=== PATIENT | female | born 1950 | race Caucasian/White ===

== ENCOUNTER 2018-07-01 12:53 | Outpatient (REF) | payer MEDICARE, OTHER, SELFPAY ==
[2018-07-03 13:59] LABS: Lyme Ab w Rflx to Lyme Confirm Negative
== END 2018-07-01 12:54 ==
LOC: NCHCN 12:53
PROVIDERS: PCP Internal Medicine; Visit Provider Nurse Practitioner Family
DX: M25.561 Pain in right knee (principal)
CPT/HCPCS: 86618

== ENCOUNTER 2018-07-15 08:00 | Outpatient (RCR) | payer MEDICARE, OTHER, SELFPAY ==
--- NOTE | 2018-07-09 10:30 | IE_ITS ---
Date: July 09, 2018 Referring: Dr. Kirby Matson [facility] Cesar Diagnosis: Osteoarthritis of the knees P.T. Diagnosis: Same SUBJECTIVE: History of Present Illness: Dari complains of intermittent discomfort throughout knees L greater than R, particularly throughout the anterior, medial region. This is worse with stairclimbing, dissension greater than ascension and when taking the first dozen steps after prolonged sitting. She generally feels better with walking less than a 1/2 mile or so, Does not interfere with her sleeping pattern. She avoids twisting maneuvers with her L knee as well as squatting. No complaints of swelling, locking or buckling. A 67 year old female who developed gradual onset of bilateral knee pain L greater than R when in [place] this past February. She was walking up to 7-9 miles a day with her . Prior to that minimal walking. In March, she slipped, fell and tweaked her L knee. It was quite intense for 24 hours, no significant swelling. Iced it and it eventually quieted down after a few days. She returned back home to [place] and her symptoms persisted. She saw her orthopedist 3 weeks ago and had a cortical steroid injection in her L knee and this made a 90% improvement with her symptoms. Her symptoms have gradually increased, but she is still 50% better than pre injection. Pain Ratin/10 Pain Location: Throughout the anterior, posterior aspect of the knees, L greater than R. Prior Level of Function: Independent with all ADL's. Current Level of Function: Discomfort with carrying out her normal household activities, donning, doffing her socks, and shoes. Getting in and out of car, standing for more than an hour, etc. . . Previous Treatment: Had x-r ays recently which showed DJD of the knees, apparently primarily throughout the medial compartment according to the patient. I do not have her x-rays or the report. Social: , retired. Comorbidities: Falls in the last year: ____ No __X__Yes - How many? __1 In March__ - (if over 2, balance SM needs to be completed) Reported hospitalizations in the last year - __x__ No ____ Yes - Dates of admission/reason: Medications: See her physician's medication list. Quality of Life: ____ Excellent __X__ Good ____ Fair ____ Poor Standardized Measures: LEFS score: 50% OBJECTIVE: Posture: Mildly obese (put on weight over the past 2 years). Is a pronator with minimal genu valgus. Observation: (behavior, atrophy, skin color, etc.) Pleasant, no abnormal pain behavior noted. Does have some swelling throughout her ankles, particularly the lateral malleolar region. Gait: Ambulates without antalgia. Is able to walk on her heel and toes without weakness, but toe walking creates anterior knee pain on the L, again she is a pronator. Palpation: Has tenderness to palpation throughout the joint lines, laterally greater than medially, L greater than R. Non-tender over quad, patella tendons, or retropatellarly. Edema: Minimal swelling throughout the knees. Has some mild warmth L greater than R. ROM: Bilateral hip motion is full and painless with movement. Her R knee motion is 0 to 140 degrees without pain on movement. L knee motion is 0 to 135- 140 degrees with end range discomfort throughout the anterior aspect of the knee with flexion, (-) spring test. (-) Jackie's or drawer sign, (-) laxity with valgus varus stress. Some mild discomfort with Darian's on the L compared to the R. Thessaly maneuver was not performed. She has pain with patellofemoral compression on the L, this is also associated with some mild crepitation, (-) on the R. Talocrural, subtalar and mid tarsal movements are full and painless with movement. She has a mild forefoot varus of approximately 6 degrees with subtalar neutral. Joint Accessory Motion: She has hypomobile patellae bilaterally. Strength: Poor definition of her quadricep with quad set, along with reproduction of her anterior knee pain with active terminal extension. Gluteus medius is at 4/5. Neuro: Intact. Special Tests: (-) SLR bilaterally with tight hamstrings at 60 degrees, (-) Lencho's test bilaterally. Quad length, distance between heel and buttocks is 4 with end range drawing throughout the anterior thighs. Treatment: Consisted of an evaluation along with development of a home program. IE: [id number] Therapeutic procedures ([id number]). Direct treatment time: 60 MINS Total treatment time: 60 MINS ASSESSMENT: Patient is a 67-year-old female, referred for PT services with the diagnosis of osteoarthritis of the knees. Patient presents with clinical signs and symptoms consistent with this diagnosis, which seems to be primarily involving the patellofemoral joints, as demonstrated by the following impairment level findings: pain primarily stairclimbing, dissension greater than ascension. Discomfort when taking the first couple dozen steps after prolonged sitting, etc. . . She also fell in March and may have aggravated a degenerative meniscus, but again she had a 90% improvement in her symptoms after steroid injections, so hopefully she will respond to conservative measures. Impairments are contributing to the following functional limitations: Difficulty standing for more than an hour along with pain and difficulty with stairclimbing, squatting, carrying out her regular household responsibilities, etc. . . Patient is assessed as: __X__ Low 92819 ____ Moderate [id number] ____ High 76169 complexity, based on the following: History: (list): OA of knees See comorbidities and social history. Examination: (list): X See above for functional limitations and impairments. Presentation: Stable . X Evolving Unstable Decision-Making: Low complexity X Moderate complexity High complexity % Disability based on LEFS of 50% __X__ Patient requires skilled PT intervention to remediate the above functional limitations to return to: __x__ Premorbid level of function Prognosis: ____ Excellent __X__ Good __X__ Fair ____ Poor G-Codes (fill in modifier after appropriate code): Patient's primary functional limitation is in the category of: __X__ Changing and maintaining body position: [id number] Projected goal: __x__ Changing and maintaining body position: [id number] STG: __6__ weeks. 1: Develop an independent program to address strengthening exercises to the thigh musculature, particularly the quads and gluts, along with minimizing stress to the patellofemoral joints, in hopes that this will improve her ability to climb stairs, squat and stand for prolonged periods. LTG: __12__ weeks. 1; Return to premorbid level of function. 2; Independent with self-maintenance program. PLAN: Session today consisted of evaluation along with issuing her a written and illustrated HEP consisting of quad, gluteal sets with patellofemoral precautions along with soft tissue stretching to the quad, hamstrings. Ice for symptomatic relief. She was issued a brace by Dr. Matson, but she has not tried this out yet, I encourage her to do so when on her feet for prolonged periods. Will see her in approximately 1 week and start a more structured program in the clinic for a few visits in open/close chain strengthening and then will work toward an independent program. I also encourage her to start wearing her walking shoes with her orthotic devices to address her mild hyperpronation. Has a follow up in one week. Thank you for this referral. Please do not hesitate to contact me with any questions or concerns regarding this patient's plan of care. Dr. Matson, please sign this evaluation and return to physical therapy if you are in agreement. Kirby Matson MD
--- NOTE | 2018-07-15 10:44 | PTTR_ITS ---
DATE: 07/15/18 SUBJECTIVE: Pt stating she feels about the same as she did last week. She has been doing her HEP at home regularly. She notes she does have a brace that was given to her from her doctor and she will bring it in next time to see if she should utilize it. OBJECTIVE: Therapeutic procedures ([id number]). * X HEP review: * X See flow sheet: Initiate open and closed chain LE strengthening program as noted on flow sheet. * X Provided skilled instruction in proper exercise performance: * X Provided skilled manual cues to facilitate proper muscle recruitment and/ or movement pattern: * X Other: Pt gets quite fatigued today overall and we will progress her program as she is able to tolerate. Direct treatment time: 35 minutes Total treatment time: 35 minutes Sol Salazar, [employer] 9 [employer]RU 12 [employer]
== END 2018-07-19 23:59 | disposition home or self-care (01) ==
LOC: PT 08:00
PROVIDERS: PCP Internal Medicine; Referring Provider Internal Medicine; Visit Provider Internal Medicine
DX: M25.561 Pain in right knee (principal); M25.562 Pain in left knee; M17.0 Bilateral primary osteoarthritis of knee
CPT/HCPCS: 97110; 97161

== ENCOUNTER 2018-10-22 08:41 | Outpatient (REF) | payer MEDICARE, OTHER, SELFPAY ==
[2018-10-22 13:26] LABS: BUN 20 mg/dL (7-18); CREATININE 1.16 mg/dL (0.55-1.02); Calcium 8.8 mg/dL (8.5-10.1); Chloride 107 mmol/L (98-107); Cholesterol 143 mg/dL (50-200); Estimated GFR 46.46 (mL/min/1.73m2); Glucose 113 mg/dL (70-100); HDL Cholesterol 50 mg/dL (40-60); LDL CHOLESTEROL 64 mg/dL (<100); Potassium 4.1 mmol/L (3.5-5.1); Sodium 140 mmol/L (136-145); Triglyceride 211 mg/dL (30-150)
== END 2018-10-22 09:01 ==
LOC: NCHCN 08:41
PROVIDERS: PCP Internal Medicine; Visit Provider Internal Medicine
DX: E78.5 Hyperlipidemia, unspecified (principal); E66.9 Obesity, unspecified
CPT/HCPCS: 80048; 80061; 83721

== ENCOUNTER 2019-10-27 08:33 | Outpatient (REF) | payer MEDICARE, OTHER, SELFPAY ==
[2019-10-27 14:39] LABS: Anion Gap 12.8 mmol/L (3-11); BUN 15 mg/dL (7-18); CO2 25.2 mmol/L (21.0-32.0); CREATININE 1.24 mg/dL (0.55-1.02); Calculated LDL 68 mg/dL; Chloride 106 mmol/L (98-107); Cholesterol 184 mg/dL (<200); Estimated GFR 42.89 (mL/min/1.73m2); Glucose 120 mg/dL (74-106); HDL Cholesterol 79 mg/dL (40-60); Potassium 4.4 mmol/L (3.5-5.1); Sodium 144 mmol/L (136-145); Triglyceride 187 mg/dL (<150)
== END 2019-10-27 08:53 ==
LOC: NCHCN 08:33
PROVIDERS: PCP Internal Medicine; Visit Provider Internal Medicine
DX: E78.5 Hyperlipidemia, unspecified (principal); N18.3 Chronic kidney disease, stage 3 (moderate); E66.9 Obesity, unspecified
CPT/HCPCS: 80048; 80061

== ENCOUNTER 2019-11-04 03:10 | Outpatient (CLI) | payer MEDICARE, OTHER, SELFPAY | END 2019-11-04 03:30 | PROVIDERS: PCP Internal Medicine; Visit Provider Internal Medicine | DX: R00.2 Palpitations (principal); I49.1 Atrial premature depolarization | CPT/HCPCS: 93225 ==

== ENCOUNTER 2019-11-06 15:50 | Outpatient (CLI) | payer MEDICARE, OTHER, SELFPAY ==
--- NOTE | 2019-11-07 08:46 | W.HOLTRPT ---
Date of service: 11/07/19 Time of Service: 08:46 Holter Monitor Report Holter Monitor Note: This is a 48-hour Holter monitor ordered for the indication of palpitations. ?The patient was in normal sinus rhythm for majority of the recording. ?There were 0 episodes of supraventricular tachycardia and rare (less than 1%) premature atrial contractions. ?There were 0 episodes of ventricular tachycardia and one single ventricular ectopic beat. ?There were no pauses greater than 3 seconds, episodes of atrial fibrillation or episodes of high degree heart block.
== END 2019-11-06 16:10 ==
PROVIDERS: PCP Internal Medicine; Visit Provider Internal Medicine
DX: R00.2 Palpitations (principal); I49.1 Atrial premature depolarization
CPT/HCPCS: 93226

== ENCOUNTER 2019-11-07 08:46 | Outpatient (CLI) | payer MEDICARE, OTHER, SELFPAY | END 2019-11-07 09:06 | PROVIDERS: PCP Internal Medicine; Referring Provider Internal Medicine; Visit Provider Internal Medicine Cardiovascular Disease | DX: R00.2 Palpitations (principal); I49.1 Atrial premature depolarization | CPT/HCPCS: 93227 ==

== ENCOUNTER 2020-08-02 01:16 | Outpatient (CLI) | payer MEDICARE, OTHER, SELFPAY ==
--- NOTE | 2020-08-02 08:50 | DI.MAMMO_ITS ---
EXAM: MAMMO SCREENING CLINICAL HISTORY: SCREENING, Z12.31 TECHNIQUE: Mammograms were interpreted according to the usual protocol including computer analysis w [employer] CAD system, tomosynthesis and C-view imaging. COMPARISON: FINDINGS: The breasts are of moderate density with fairly symmetrical distribution of fibroglandular tissue. N o dominant mass or clumped microcalcification is identified in either breast. Prior post biopsy scar ring of the medial aspect of the right breast noted. Examination is compared with previous studies i ncluding June 2019 and there has been no gross interval change in appearance in comparison with pre vious examinations. IMPRESSION: No specific evidence of malignancy at this time. Routine screening examinations are suggested at yea rly intervals due to the family history of breast carcinoma. BI-RADS Category 1 - Negative Breast Density - Category B - Scattered areas of fibroglandular density
== END 2020-08-02 01:36 ==
PROVIDERS: PCP Internal Medicine; Visit Provider Internal Medicine
DX: Z12.31 Encounter for screening mammogram for malignant neoplasm of breast (principal)
CPT/HCPCS: 77063; 77067

== ENCOUNTER 2020-11-01 20:10 | Outpatient (REF) | payer MEDICARE, OTHER, SELFPAY ==
[2020-11-01 21:51] LABS: ALT 27 U/L (14-59); AST 23 U/L (15-37); Albumin 3.8 g/dL (3.4-5.0); Alkaline Phosphatase 90 U/L (46-116); Anion Gap 12.6 mmol/L (3-11); BUN 24 mg/dL (7-18); Bilirubin, Total 0.2 mg/dL (0.2-1.0); CO2 21.4 mmol/L (21.0-32.0); CREATININE 1.44 mg/dL (0.55-1.02); Calcium 9.1 mg/dL (8.5-10.1); Chloride 107 mmol/L (98-107); Estimated GFR 35.99 (mL/min/1.73m2); Glucose 127 mg/dL (74-106); Potassium 4.1 mmol/L (3.5-5.1); Sodium 141 mmol/L (136-145); Total Protein 7.1 g/dL (6.4-8.2)
[2020-11-01 21:58] LABS: Hemoglobin A1C 5.6 % (<5.7)
== END 2020-11-01 20:30 ==
LOC: NCHCN 20:10
PROVIDERS: PCP Internal Medicine; Visit Provider Internal Medicine
DX: R73.03 Prediabetes (principal); E78.5 Hyperlipidemia, unspecified; N18.30 Chronic kidney disease, stage 3 unspecified; F41.8 Other specified anxiety disorders; E66.9 Obesity, unspecified
CPT/HCPCS: 80053; 83036

== ENCOUNTER 2020-12-14 03:10 | Outpatient (CLI) | payer MEDICARE, OTHER, SELFPAY ==
[2020-12-15 12:32] LABS: COVID-19 RT-PCR UVMMC Result Negative (Negative)
== END 2020-12-14 03:30 ==
PROVIDERS: PCP Internal Medicine; Visit Provider Podiatrist
DX: Z11.52 Encounter for screening for COVID-19 (principal); Z01.818 Encounter for other preprocedural examination
CPT/HCPCS: U0003

== ENCOUNTER 2020-12-17 09:11 | Day surgery (SDC) | payer MEDICARE, OTHER, SELFPAY ==
--- NOTE | 2020-12-17 09:55 | W.PM.HP.N ---
Date of service: 12/17/20 Time of Service: 09:55 History of Present Illness History of Present Illness Chief Complaint: Symptomatic midtarsal dorsal exostosis right foot Narrative: 70-year-old female with increasing pain associated with degenerative arthritis of the right midfoot with dorsal exostosis formations making it difficult to wear shoes and ambulate. Nonoperative treatments have failed to provide lasting relief of symptoms. She is opting for surgical intervention. She fully understands the potential for pain, scarring, infection, the need for additional surgeries including the potential fusion if symptomatology persists. All questions have been answered. [facility] Medical History Anxiety Depression GERD (gastroesophageal reflux disease) Hypercholesteremia Surgical History History of appendectomy History of hysterectomy History of total left knee replacement (TKR) Hx of shoulder surgery Social History Smoking/Tobacco Use Status: Former Tobacco Use Quit Date: 11/19/69 Smoking risk assessment performed?: Yes Alcohol Intake: current Alcohol Intake frequency: a few times a month Alcohol type: wine Substance use type: does not use Do you feel safe at home: Yes Do you feel safe in your relationship?: Yes Meds Home Medications and Allergies Home Medications Medication Instructions Recorded Confirmed Type acyclovir 800 mg PO DAILY PRN 12/15/20 12/15/20 History citalopram 40 mg PO DAILY 12/15/20 12/17/20 History diazepam 5 mg PO DAILY PRN 12/15/20 12/15/20 History donepezil 5 mg PO DAILY 12/15/20 12/17/20 History ezetimibe 10 mg PO DAILY 12/15/20 12/17/20 History furosemide 40 mg PO DAILY 12/15/20 12/17/20 History mirtazapine 15 mg PO DAILY 12/15/20 12/17/20 History omeprazole 20 mg PO DAILY 12/15/20 12/17/20 History rosuvastatin 20 mg PO DAILY 12/15/20 12/17/20 History zaleplon 10 mg PO DAILY 12/15/20 12/17/20 History Allergies Allergy/AdvReac Type Severity Reaction Status Date / Time No Known Allergies Allergy Unverified 12/17/20 09:34 Exam Narrative Exam Narrative: Dari presents in his usual state of health. No acute distress. Head is normocephalic Eyes PERRLA Hearing is adequate Heart had regular rate and rhythm I detected no abnormalities, gallops rubs or murmurs. Lung knox are clear Abdomen is soft bowel sounds x4 Peripheral pulses are normally palpable, CFT is under 3 seconds to all toes, no peripheral edema. Muscle groups are 5 out of 5 bilaterally. Skeletal exam is remarkable for midtarsal dorsal exostosis formations palpable over the first metatarsal and second metatarsal cuneiform joints. There is tenderness to gentle palpation over the bony prominences. Neurologically she is grossly intact. Impressions: Degenerative osteoarthritic changes right midfoot with exostosis formations Plan: Dari is being brought to the OR for surgical reduction of the metatarsal dorsal exostosis formations over the right midfoot. She understands potential risk and complications pertaining to pain, scarring, infection, anatomic injury to the surrounding structures all requiring revisional procedures if symptomatology persists. All questions have been answered in detail. Informed consent has been obtained. Dictated with Karensherly benitez speaking. COVID-19 Screening Have you, or household traveled for leisure in last 14 days?: No Had IN PERSON contact w/suspected or confirmed C-19 person: No
[2020-12-17] MEDS: Lactated Ringers 1,000 ML 80 ML IV (10:01)
[2020-12-17 11:04] VITALS: BP 110/50; PULSE 85; RESP 18; TEMP 36.4; O2SAT 93
[2020-12-17] MEDS: ceFAZolin 1 GM/50 ML BAG IVPB (12:08)
[2020-12-17] MEDS: Bupivacaine 0.5% Pres-Free 30 ML VIAL (12:10)
[2020-12-17] MEDS: Lidocaine 1% Multi-Dose 50 ML VIAL (12:10)
[2020-12-17] MEDS: Dexamethasone 4 MG/ML VIAL (12:43)
--- NOTE | 2020-12-17 12:57 | W.PM.DSUDISC ---
Discharge Plan Disposition Patient Disposition: HOME Condition: Good Discharge Details Reason For Visit: resection exostosis, right midfoot Attending Provider: Giorgio Willard Primary Care Provider: Cal Rai [place] Meds and New Rx's Prescriptions: New ibuprofen 600 mg tablet 600 mg PO Q6H PRN (Reason: pain and inflammation) Qty: 60 RF: 1 hydrocodone-acetaminophen [[place]] 5-325 mg tablet 1 tab PO Q6H PRN (Reason: pain) Qty: 7 RF: 0 No Action furosemide 40 mg tablet 40 mg PO DAILY RF: 0 donepezil 5 mg tablet 5 mg PO DAILY RF: 0 citalopram 40 mg tablet 40 mg PO DAILY RF: 0 acyclovir 800 mg tablet 800 mg PO DAILY PRNRF: 0 omeprazole 20 mg capsule,delayed release(DR/EC) 20 mg PO DAILY RF: 0 zaleplon 10 mg capsule 10 mg PO DAILY RF: 0 mirtazapine 15 mg tablet 15 mg PO DAILY RF: 0 diazepam 5 mg tablet 5 mg PO DAILY PRNRF: 0 ezetimibe 10 mg tablet 10 mg PO DAILY RF: 0 rosuvastatin 20 mg tablet 20 mg PO DAILY RF: 0 Discharge Instructions Activity:: Elevate Remove Dressings/Wound Care:: Do Not Remove Shower/Bathe:: Cover Diet:: Normal Diet Discharge Orders Discharge Orders: Discharge Order (Routine); Ordered 12/17/20 Ordered By: Giorgio Willard DS: Diagnosis Discharge Diagnosis (1) Exostosis of bone of foot: Status: Acute
--- NOTE | 2020-12-17 13:27 | W.PM.OP ---
Date of service: 12/17/20 Time of Service: 13:27 Operative Note Operative Note DATE OF PROCEDURE: 12/17/20 PRE-OP DIAGNOSIS: Midtarsal dorsal exostosis right foot POST-OP DIAGNOSIS: same PROCEDURE: Midtarsal dorsal exostectomy SURGEON: Giorgio Willard ANESTHESIA: GRACIELA ESTIMATED BLOOD LOSS: 1 PATHOLOGY: none sent TOURNIQUET TIME: 33 COMPLICATIONS: None Patient was transported to: same day Patient's condition: stable Indications: 70-year-old female with worsening pain over the dorsum of her right midfoot exacerbated with shoe gear and ambulation interfering with quality of life. Nonsurgical treatments have failed to provide stated significant improvement and she is opting for surgical intervention. She understands potential risks and complications pertaining to pain, scarring, infection, ongoing disc comfort potentially requiring revisional procedures. The potential for neurologic injury over the surgical site was discussed. All questions were answered informed consent was obtained. Procedure Description: Dari was brought to the operative suite placed in the supine position with the right foot was prepped and draped in the usual sterile podiatric fashion. Timeout was performed. Attention was directed to the right foot which was exsanguinated and a well-padded ankle tourniquet inflated following adequate anesthesia. Attention was directed to the region of the first metatarsocuneiform joint with bony enlargement is readily palpable the incision was approximately a centimeter and 1/2 to 2 cm in length and the incision deepened in controlled depth fashion. Dissection was carried down through the soft tissues to the periosteum. The periosteum was incised and reflected medially and laterally. [place] elevator was used to remove the soft tissues from the bone. Osteotome and mallet was then used and the hyperostosis resected the area was saucerized and all rough and bony edges rasped smooth. Excellent resection of bone was confirmed through finger palpation and visualization. Copious irrigation was performed. Bone wax was applied to the raw of bone. The deep layers were repaired with simple interrupted suture 3-0 Vicryl subcutaneous layer was repaired with 4-0 Vicryl subcuticular layer was closed with continuous running suture of 4-0 Monocryl Mastisol and half-inch Steri-Strips applied Xeroform gauze fluff compression dressings were applied after the wound was injected with 4 mg of dexamethasone phosphate. Tourniquet was released at approximately 33 minutes with vascularity returning immediately to a all toes and the entire foot. Dari left the OR with vital signs stable vascular status intact sharp and sponge counts were correct.
[2020-12-17 13:46] VITALS: BP 116/57; PULSE 61; RESP 16; TEMP 36.4; O2SAT 97
== END 2020-12-17 14:26 | disposition home or self-care (01) ==
PROVIDERS: PCP Internal Medicine; Visit Provider Podiatrist
PROC: (CPT 28288; principal; 2020-12-17 11:00)
DX: M89.8X7 Other specified disorders of bone, ankle and foot (principal)
CPT/HCPCS: 28104; 99236; J0690; J1100; J1885; J2001; J2405

== ENCOUNTER 2021-01-24 19:43 | Outpatient (REF) | payer MEDICARE, OTHER, SELFPAY ==
[2021-01-25 14:11] LABS: COVID-19 RT-PCR UVMMC Result Negative (Negative)
== END 2021-01-24 19:44 | disposition home or self-care (01) ==
LOC: NCHCN 19:43
PROVIDERS: PCP Internal Medicine; Visit Provider Internal Medicine
DX: Z20.822 Contact with and (suspected) exposure to COVID-19 (principal)
CPT/HCPCS: U0003; U0005

== ENCOUNTER 2021-01-31 15:04 | Outpatient (REF) | payer MEDICARE, OTHER, SELFPAY ==
[2021-02-01 02:46] LABS: COVID-19 RT-PCR UVMMC Result Negative (Negative)
== END 2021-01-31 15:05 | disposition home or self-care (01) ==
LOC: NCHCN 15:04
PROVIDERS: PCP Internal Medicine; Visit Provider Internal Medicine
DX: Z20.822 Contact with and (suspected) exposure to COVID-19 (principal)
CPT/HCPCS: U0003; U0005

== ENCOUNTER 2021-04-11 00:33 | Outpatient (CLI) | payer MEDICARE, OTHER, SELFPAY ==
--- NOTE | 2021-04-11 | DI.CT_ITS ---
Exam(s) CT LOWER EXTREMITY RT WO EXAM: CT LOWER EXTREMITY RT WO CLINICAL HISTORY: PAIN 1ST AND 2ND METATARSAL CUNEIFORM JOINT. TECHNIQUE: Imaging Protocol: Axial computed tomography images with coronal and sagittal reformatted images were created and reviewed. CONTRAST MATERIAL: Intravenous: None COMPARISON: Ankle x-rays 2010. FINDINGS: Osseous: There are no fractures evident. There are mild degenerative changes at the articulation bet ween the medial cuneiform and the great toe metatarsal base. There are no fractures of the metatarsa l bases. No osseous abnormality evident at the main Lisfranc joint. There is no pes planus. Ankle and subtalar joints appear unremarkable as do the calcaneocuboid and t alonavicular joints. Flexion deformity of the toes noted. There is no evidence of osseous tarsal co alition. IMPRESSION: No fractures evident. Clinically indicated recommend follow-up MRI for added sensitivity and specifi city. RADIATION DOSE DELIVERED: 308.14mGy.cm Total DLP DATA REPOSITORY: All CT scans at this facility are submitted to the National Radiology Data Registry (NRDR) Dose Index Registry (DIR) with the [employer] (A[employer]). RADIATION OPTIMIZATION: All CT scans at this facility use at least one of these dose optimization te chniques: automated exposure control; mA and/or kV adjustment per patient size (includes targeted exa ms where dose is matched to clinical indication); or iterative reconstruction.
== END 2021-04-11 00:53 ==
PROVIDERS: PCP Internal Medicine; Visit Provider Podiatrist
DX: M79.674 Pain in right toe(s) (principal); M77.41 Metatarsalgia, right foot
CPT/HCPCS: 73700

== ENCOUNTER 2021-04-22 07:10 | Day surgery (SDC) | payer MEDICARE, OTHER, SELFPAY ==
--- NOTE | 2021-04-22 06:59 | HPE_ITS ---
Date of service: 04/22/21 Time of Service: 06:59 History of Present Illness History of Present Illness Chief Complaint: Pain right first metatarsocuneiform joint region Narrative: 70-year-old female with pain in the right midfoot centered at the first metatarsal cuneiform joint which is impeding her ability to ambulate and bear weight. Nonoperative treatment has failed to provide sufficient relief of symptoms. PFSH Medical History Anxiety Depression GERD (gastroesophageal reflux disease) Hypercholesteremia Surgical History History of appendectomy History of hysterectomy History of total left knee replacement (TKR) Hx of shoulder surgery Social History Smoking/Tobacco Use Status: Former Tobacco Use Quit Date: 11/19/69 Smoking risk assessment performed?: Yes Alcohol Intake: current Alcohol Intake frequency: a few times a month Alcohol type: wine Substance use type: does not use Do you feel safe at home: Yes Do you feel safe in your relationship?: Yes Meds Allergies and Home Medications Allergies Allergy/AdvReac Type Severity Reaction Status Date / Time No Known Allergies Allergy Unverified 04/21/21 10:30 Home Medications Medication Instructions Recorded Confirmed Type acyclovir 800 mg PO DAILY PRN 12/15/20 04/21/21 History citalopram 40 mg PO DAILY 12/15/20 04/21/21 History diazepam 5 mg PO DAILY PRN 12/15/20 04/21/21 History donepezil 5 mg PO DAILY 12/15/20 04/21/21 History ezetimibe 10 mg PO DAILY 12/15/20 04/21/21 History furosemide 40 mg PO DAILY 12/15/20 04/21/21 History mirtazapine 15 mg PO DAILY 12/15/20 04/21/21 History omeprazole 20 mg PO DAILY 12/15/20 04/21/21 History rosuvastatin 20 mg PO DAILY 12/15/20 04/21/21 History zaleplon 10 mg PO HS 12/15/20 04/21/21 History hydrocodone-acetaminophen [[place]] 1 tab PO Q6H PRN #7 tab 12/17/20 04/21/21 Rx ibuprofen 600 mg PO Q6H PRN #60 tab 12/17/20 04/21/21 Rx Exam Narrative Exam Narrative: Dari is a 70-year-old white female in no acute distress. She is pleasant, awake alert without anxiety. Head is normocephalic Eyes PERRLA Hearing is adequate Uvula is midline airway looks assessable Heart had regular rate and rhythm I detected no gallops rubs or murmurs Lung knox are clear Abdomen was soft and nontender bowel sounds appreciated Peripheral pulses at the ankle are palpable 2 out of 4 capillary refills under 3 seconds to all toes no edema muscle group 5 out of 5 bilaterally Skeletal exam reveals pain with manipulation at the base of the first metatarsal cuneiform joint. Pain is graded +6/10. Well-healed surgical cicatrix noted over the second metatarsal cuneiform joint region. Neurologically she is grossly intact, toes are downgoing, no focal deficits Impressions: Chronic pain first metatarsocuneiform joint right foot Plan: Dari is being brought to the OR for surgical exploration of the first metatarsocuneiform joint and fusion procedure. She understands risk and complications of surgery pertaining to pain, scarring, infection, neurologic injury, malunion, nonunion, delayed union, difficulty with the hardware potentially requiring revisional procedures. All questions have been answered in detail. There were no promises been made to final outcome of surgery. Informed consent has been obtained. COVID-19 Screening Have you, or household traveled for leisure in last 14 days?: No Had IN PERSON contact w/suspected or confirmed C-19 person: No
--- NOTE | 2021-04-22 07:11 | ANES.PREOP_ITS ---
General Info Date of Service Date Performed: 04/22/21 Height: 5 ft 5 in Weight: 87.5 kg Body Mass Index (BMI): 32.1 Surgical Procedure: Operation Date: 04/22/21 08:40 Proposed Procedures Side Surgeon p Arthroplasty Right Giorgio Willard DPM s FUSION RT FIRST METATARSAL CUNEIFORM JOINT Right Giorgio Willard DPM Meds Allergies and Home Medications Allergies Allergy/AdvReac Type Severity Reaction Status Date / Time No Known Allergies Allergy Unverified 04/22/21 07:40 Home Medication Medication Instructions Recorded acyclovir 800 mg PO DAILY PRN 12/15/20 citalopram 40 mg PO DAILY 12/15/20 diazepam 5 mg PO DAILY PRN 12/15/20 donepezil 5 mg PO DAILY 12/15/20 ezetimibe 10 mg PO DAILY 12/15/20 furosemide 20 mg PO DAILY 12/15/20 mirtazapine 15 mg PO DAILY 12/15/20 omeprazole 20 mg PO DAILY 12/15/20 rosuvastatin 20 mg PO DAILY 12/15/20 zaleplon 10 mg PO HS 12/15/20 hydrocodone-acetaminophen [[place]] 1 tab PO Q6H PRN #7 tab 12/17/20 ibuprofen 600 mg PO Q6H PRN #60 tab 12/17/20 Current Visit Medications: Current Medications Generic Name Dose Route Start Last Admin Trade Name Freq PRN Reason Stop Dose Admin Sodium Chloride 500 mls @ 0 mls/hr 04/22/21 06:00 Saline 500ml Bag IV PRN PRN As Directed Cefazolin Sodium/Dextrose 2 gm in 50 mls @ 100 mls/hr 04/22/21 06:[address] Ancef [address] IVPB PREOP LANE Ringer's Solution 1,000 mls @ 80 mls/hr 04/22/21 06:00 IV 05/21/21 23:[address] IV Miscellaneous Supplies 1 each 04/22/21 06:00 Iv Access IV DIRECTED LANE IV Miscellaneous Supplies 1 each 04/22/21 06:00 Iv Access IV 05/21/21 23:[address] Povidone Iodine 0 ml 04/22/21 06:00 Povidone-Iodine Soln. 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 Medical History Medical History Anxiety Depression GERD (gastroesophageal reflux disease) Hypercholesteremia Surgical History Surgical History (Updated 04/22/21 @ 07:40 by Nieves Thomas) History of appendectomy History of hysterectomy History of total left knee replacement (TKR) Hx of carpal tunnel repair Hx of foot surgery Hx of shoulder surgery Hx of tonsillectomy Tobacco Smoking/Tobacco Use Status: Former Tobacco Use Alcohol Alcohol Intake: current Alcohol intake frequency: a few times a month Alcohol type: wine Substance Use Substance use type: does not use Vital Signs and Lab Results Lab Results Blood Type / Crossmatch: No Data to Display Complete Blood Count: No Data to Display Complete Metabolic Panel: No Data to Display Liver Function Panel: No Data to Display Coagulation Panel: No Data to Display Cardiac Panel: No Data to Display Arterial Blood Gas: No Data to Display Venous Blood Gas: No Data to Display Pancreas Panel: No Data to Display Thyroid Panel: No Data to Display Infectious Disease: No Data to Display Blood Cultures: No Data to Display Toxicology Panel: No Data to Display Anesthesia Assessment and Plan Anesthesia History Personal History: No History of Anesthesia Complications Family History: No Family History of Anesthesia Complications Exercise Tolerance Exercise Tolerance: Metabolic Equivalents>4 Pertinent Negatives Pertinent Negatives: No Symptoms of GERD Cardiac & Pulmonary Exam Cardiac Exam: Normal S1/S2 Heart Sounds Pulmonary Exam: Clear Bilateral Breath Sounds Airway Exam Known Difficult Airway: No Mallampati Class: 2 Mouth Opening: Normal (> 3cm) Thyromental Distance: Greater than 3 cm Neck Range of Motion: Full ROM Neck Circumference: Normal Teeth Condition: Removable Dentures/Plates Upper and Removable Dentures/Plates Lower ASA Classification ASA Score: ASA 2 Emergency Case?: No NPO Status NPO Status: NPO Clears >2 hours, Solids >8 hours Anesthesia Plan Resuscitation Status: Full Code Anesthesia Technique: General Anesthesia Airway Planned: Natural Airway Monitors Used: Standard Monitors
[2021-04-22 07:44] VITALS: BP 118/63; PULSE 80; RESP 12; TEMP 36.1; O2SAT 95
[2021-04-22] MEDS: Lactated Ringers 1,000 ML 80 ML IV (08:00)
[2021-04-22 08:06] VITALS: BMI 32.1
[2021-04-22] MEDS: Acetaminophen 500 MG TAB 1000 MG PO (08:12)
[2021-04-22] MEDS: Lidocaine 1% Multi-Dose 50 ML VIAL (09:00)
[2021-04-22] MEDS: Bupivacaine 0.5% Pres-Free 30 ML VIAL (09:00)
[2021-04-22] MEDS: ceFAZolin 2 GM/50 ML BAG IVPB (09:01)
--- NOTE | 2021-04-22 10:28 | PDOC.DSDIS_ITS ---
Discharge Plan Disposition Patient Disposition: HOME Condition: Good Discharge Details Reason For Visit: Fusion first metatarsocuneiform joint right foot Attending Provider: Giorgio Willard Primary Care Provider: Berkley Cox Stover Meds and New Rx's Prescriptions: No Action furosemide 40 mg tablet 20 mg PO DAILY RF: 0 donepezil 5 mg tablet 5 mg PO DAILY RF: 0 citalopram 40 mg tablet 40 mg PO DAILY RF: 0 acyclovir 800 mg tablet 800 mg PO DAILY PRNRF: 0 omeprazole 20 mg capsule,delayed release(DR/EC) 20 mg PO DAILY RF: 0 zaleplon 10 mg capsule 10 mg PO HS RF: 0 mirtazapine 15 mg tablet 15 mg PO DAILY RF: 0 diazepam 5 mg tablet 5 mg PO DAILY PRNRF: 0 ezetimibe 10 mg tablet 10 mg PO DAILY RF: 0 rosuvastatin 20 mg tablet 20 mg PO DAILY RF: 0 ibuprofen 600 mg tablet 600 mg PO Q6H PRN (Reason: pain and inflammation) Qty: 60 RF: 1 hydrocodone-acetaminophen [[place]] 5-325 mg tablet 1 tab PO Q6H PRN (Reason: pain) Qty: 7 RF: 0 Discharge Instructions Equipment/Supplies: Non-Weight Bearing Crutches Activity:: Elevate Remove Dressings/Wound Care:: Do Not Remove Shower/Bathe:: Cover Diet:: Normal Diet Discharge Orders Discharge Orders: Discharge Order (Routine); Ordered 04/22/21 Ordered By: Giorgio Willard DS: Diagnosis Discharge Diagnosis (1) Osteoarthritis of foot, right: Status: Acute
--- NOTE | 2021-04-22 10:28 | W.ANESPOSTOP ---
Postoperative Evaluation Date, Time and Location Date Performed: 04/22/21 Time Performed: 10:35 Patient Location: Day Surgery Unit Vital Signs Most Recent Imported Vital Signs: Most Recent Vital Signs Temp Pulse Resp BP Pulse Ox 36.1 C L 80 12 118/63 95 04/22/21 07:44 04/22/21 07:44 04/22/21 07:44 04/22/21 07:44 04/22/21 07:44 Most Recent Manually Entered Vital Signs: Adult Blood Pressure: 109/49 Heart Rate: 68 Respirations: 18 Oxygen Saturation (%): 95 Temperature (C): 36.4 C Pain Score (0-10 Scale): 6 Pain Score Most Recent Pain Score: Most Recent Pain Score Pain Level 0 04/22/21 07:44 Assessment Mental Status: Awake (Alert & Oriented to Patient Baseline) Airway and Respiratory Function: Patent airway with normal (patient baseline) respiratory exam Cardiovascular Function: Hemodynamically Stable Hydration Status: Adequately Hydrated Nausea & Vomiting: No Nausea or Vomiting Pain: Pain is Moderate or Severe Postoperative Pain Management: Other (Pain improving, now 6/10. Will try some heat on her left knee ) Peripheral Nerve Block: Patient did not receive a nerve block
--- NOTE | 2021-04-22 10:30 | PDOC.DSDIS_ITS ---
Discharge Plan Disposition Patient Disposition: HOME Condition: Good Discharge Details Reason For Visit: Fusion first metatarsocuneiform joint right foot Attending Provider: Giorgio Willard Primary Care Provider: Berkley Cox Home Meds and New Rx's Prescriptions: New hydrocodone-acetaminophen 5-325 mg tablet 1 tab PO Q6H PRN (Reason: post op pain) Qty: 9 RF: 0 Continued furosemide 40 mg tablet 20 mg PO DAILY RF: 0 donepezil 5 mg tablet 5 mg PO DAILY RF: 0 citalopram 40 mg tablet 40 mg PO DAILY RF: 0 acyclovir 800 mg tablet 800 mg PO DAILY PRNRF: 0 omeprazole 20 mg capsule,delayed release(DR/EC) 20 mg PO DAILY RF: 0 zaleplon 10 mg capsule 10 mg PO HS RF: 0 mirtazapine 15 mg tablet 15 mg PO DAILY RF: 0 diazepam 5 mg tablet 5 mg PO DAILY PRNRF: 0 ezetimibe 10 mg tablet 10 mg PO DAILY RF: 0 rosuvastatin 20 mg tablet 20 mg PO DAILY RF: 0 ibuprofen 600 mg tablet 600 mg PO Q6H PRN (Reason: pain and inflammation) Qty: 60 RF: 1 hydrocodone-acetaminophen [[place]] 5-325 mg tablet 1 tab PO Q6H PRN (Reason: pain) Qty: 7 RF: 0 Discharge Instructions Equipment/Supplies: Non-Weight Bearing Crutches Activity:: Elevate Remove Dressings/Wound Care:: Do Not Remove Shower/Bathe:: Cover Diet:: Normal Diet Discharge Orders Discharge Orders: Discharge Order (Routine); Ordered 04/22/21 Ordered By: Giorgio Wilalrd DS: Diagnosis Discharge Diagnosis (1) Osteoarthritis of foot, right: Status: Acute
[2021-04-22 10:32] VITALS: BP 109/49; PULSE 70; RESP 14; TEMP 36.4; O2SAT 94
[2021-04-22 10:37] VITALS: BP 109/49; PULSE 68; RESP 18; TEMPC 36.4; O2SAT 95
[2021-04-22 11:00] VITALS: BP 118/61; PULSE 64; RESP 14; TEMP 36.5; O2SAT 95
--- NOTE | 2021-04-22 12:28 | ROE_ITS ---
Date of service: 04/22/21 Time of Service: 12:28 Operative Note Operative Note Refer to Anesthesia Record Dari was brought into the oprative suite, placed in the supine position and prepped and draped in the usual podiatric fashion. The 1st ray was anesthesized with 20cc 50:50 mixture 1%Lidocaine plain and 0.5% Marcaine plain. Time out was performed per protocol. The right foot was exsanguinated and an well padded ankle tournique inflated to 250mmhg. Attention was directed to the 1st MPJ where a 6cm incision was made centered over the 1st metatarsal cuneiform joint. The incision was deeped with sharp and blunt disection, hemostasis acquired with electro cautery as needed. Once I was at the periosteum level, this wass opened and the 1st Metatarsal cuneiform joint inspected. There were periarticular spurring around the dorsal and medial aspect of allyson joint. These were resected with a ronguer. Power saw was then used to resect a potion of the articular surfaces, then curettages used to get down to subchondral bone. A o.62 K-wire was then used to perforate both sides of the joint surfacrs. Bone paste was applied into the joint space after the region was copiously irrigated. Alignment was achieved with a 0.062 K-wire and internal fixation achieved with [employer] compression jareth. Good stability and positioning noted on the table. The periosteum was closed with 3-0 Vicryl, the subcutaneous layer with 3-0 vicryl, the subcuticular layer with 4-0 vicryl and the subcuticular layer brought together with 4-0 Monocryyl. 1/4 steri strips, Xeroform, fluffs, kerlix rolls x2 and a well padded posterior splint applied. The tournique was dropped at 68 minutes. Dari left the OR with VVV, Sharpa nd sponge couts corrrect. She will be followed by myself next 2 weeks in the office.
== END 2021-04-22 11:35 | disposition home or self-care (01) ==
PROVIDERS: PCP Student in an Organized Health Care Education/Training Program; Visit Provider Podiatrist
PROC: (CPT 28740; principal; 2021-04-22 08:30)
PROC: (CPT 26850; 2021-04-22 08:30)
DX: M19.071 Primary osteoarthritis, right ankle and foot (principal); M25.571 Pain in right ankle and joints of right foot; R26.2 Difficulty in walking, not elsewhere classified
CPT/HCPCS: 28740; C1713; J0690; J1100; J2001; J2405; J2704

== ENCOUNTER 2021-05-26 02:40 | Outpatient (CLI) | payer MEDICARE, OTHER, SELFPAY ==
[2021-05-26 08:44] LABS: HCT 39.2 % (36.0-46.0); HGB 12.9 g/dL (11.2-15.7); MCH 32.6 pg (27.0-33.0); MCHC 32.9 % (32.0-36.0); Platelet Count 206 10^3/uL (130-400); RBC 3.96 10^6/uL (3.93-5.22); RDW 12.3 % (11.7-14.6); RDW-SD 44.9 fL; WBC 6.03 10^3/uL (4.4-10.8)
[2021-05-26 11:24] LABS: ALT 26 U/L (14-59); AST 16 U/L (15-37); Albumin 3.8 g/dL (3.4-5.0); Alkaline Phosphatase 80 U/L (46-116); Anion Gap 11.1 mmol/L (3-11); BUN 19 mg/dL (7-18); Bilirubin, Total 0.3 mg/dL (0.2-1.0); CO2 25.9 mmol/L (21.0-32.0); CREATININE 1.5 mg/dL (0.55-1.02); Calcium 9.3 mg/dL (8.5-10.1); Calculated LDL 71 mg/dL (<100); Chloride 106 mmol/L (98-107); Cholesterol 189 mg/dL (<200); Estimated GFR 34.33 (mL/min/1.73m2); Glucose 117 mg/dL (74-106); HDL Cholesterol 64 mg/dL (40-60); Potassium 4.2 mmol/L (3.5-5.1); Sodium 143 mmol/L (136-145); TSH (W/Ref FT4) 1.57 uIU/mL (0.36-3.74); Total Protein 7.1 g/dL (6.4-8.2); Triglyceride 273 mg/dL (<150)
== END 2021-05-26 02:41 | disposition home or self-care (01) ==
LOC: LBO 02:40
PROVIDERS: PCP Student in an Organized Health Care Education/Training Program; Visit Provider Student in an Organized Health Care Education/Training Program
DX: R60.0 Localized edema (principal); N28.9 Disorder of kidney and ureter, unspecified; I69.30 Unspecified sequelae of cerebral infarction; R53.83 Other fatigue
CPT/HCPCS: 36415; 80053; 80061; 85027; 84443

== ENCOUNTER 2021-06-15 02:13 | Outpatient (CLI) | payer MEDICARE, OTHER, SELFPAY ==
--- NOTE | 2021-06-15 13:52 | DI.US_ITS ---
APPROVED REPORT EXAM: Comprehensive 2D, Doppler, and color-flow Echocardiogram Patient Location: Out-Patient X Ray Service Engineer: Michelle Cerrato RDCS (AE) Indications: SOB, Leg edema Other Information Study Quality: Adequate Conclusion Left Ventricle : The left ventricle is normal size. The left ventricular ejection fraction is within the normal range. There is normal left ventricular wall thickness. There is normal LV segmental wall motion. The left ventricular diastolic function is normal. LVEF is 58%. Right Ventricle : The right ventricle is normal size. The right ventricular systolic function is norm al. The RVSP is 24.8 mmHg. Atria : The left atrium size is normal. The right atrium size is normal. Mitral Valve : Mild mitral annular calcification. Mild mitral regurgitation. No evidence of mitral va lve stenosis. Great Vessels : The aortic root is normal in size. The ascending aorta is mildly dilated. Aortic arch is not well visualized. IVC is normal in size and collapses >50% with inspiration. Wall motion Left Ventricle The left ventricle is normal size. The left ventricular ejection fraction is within the normal range. There is normal left ventricular wall thickness. There is normal LV segmental wall motion. The left ventricular diastolic function is normal. There is no ventricular septal defect visualized. LVEF is 5 8%. Right Ventricle The right ventricle is normal size. The right ventricular systolic function is normal. The RVSP is 24 .8 mmHg. Atria The left atrium size is normal. The right atrium size is normal. The interatrial septum is intact wit h no evidence for an atrial septal defect. Aortic Valve The aortic valve is normal in structure. Aortic valve is trileaflet. There is no aortic valvular sten osis. No aortic regurgitation is present. Mitral Valve Mild mitral annular calcification. No evidence of mitral valve stenosis. Mild mitral regurgitation. Tricuspid Valve The tricuspid valve is normal in structure. There is no tricuspid valve stenosis. Trace tricuspid reg urgitation. Pulmonic Valve The pulmonary valve is normal in structure. There is no pulmonic valvular stenosis. There is no pulmo kimberley valvular regurgitation. Great Vessels The aortic root is normal in size. The ascending aorta is mildly dilated. Aortic arch is not well vis ualized. IVC is normal in size and collapses >50% with inspiration. Pericardium There is no pericardial effusion. 2D Dimensions IVSD d PLAX 1.02 cm F: 0.6-1.0 LV Vol A2C d MOD 43.4 mL LVPW d PLAX 1.02 cm F: 0.6 - 1.0 LV Vol A4C d MOD 73.9 mL LVID d PLAX 4.26 cm F: 3.8 - 5.2 LA vol/ BSA A2C s A-L 15.7 mL/m2 LVDs 3.00 cm F: 2.2 - 3.5 LA vol/ BSA A4C s A-L 24.9 mL/m2 Ao Root d 2.66 cm F: 2.7 - 3.3 LA Vol/ BSA Biplane s A-L 21.2 mL/m2 RA Area A4C 13.64 cm2 LA Area A4C s MOD 17.44 cm2 RA Vol/ BSA A4C s A-L 18.7 mL/m2 LA Area A2C s MOD 12.90 cm2 Ao Asc Diam d 3.31 cm F: 2.3 - 3.1 LV EF A4C MOD 56.5 % LV EF Teichholz 55.6 % LV EF A2C MOD 58.6 % LVEF (House's) 58.17 % F: 54 - 74 LV EF Biplane MOD 58.2 % LV Volume 44.25 mL F: 46 - 106 SV 33.81 mL LV Volume Index 23.16 mL/m2 F: 29 - 61 SV Index 17.67 mL/m2 LV Vol Biplane MOD 58.1 mL FS 28.65 % M-Mode TAPSE 1.92 cm (M/F) >1.7 LV Diastology MV E' medial 0.089 (>0.07 m/s) E/A Ratio 0.7 LV E/e MED 5.75 (<14) MV E Vmax 0.51 (0.4-1.3 m/s) MV E' lateral 0.115 (>0.1 m/s) MV A Vmax 0.75 (0.4-1.3 m/s) LV E/e LAT 4.45 (<14) MV E/A Ratio 0.67 MV E/E' medial 5.77 MV E/E' lateral 4.48 Aortic Valve LVOT Area 2.96 cm2 AoV Area Vmax 2.86 cm2 LVOT Vmax 1.06 m/s AoV Area/ BSA (Vmax) 1.49 cm2/m2 LVOT Mean Efra. 0.72 m/s FUAD Mean Efra. 2.70 cm2 LVOT Peak Grad 4.5 mmHg FUAD Mean Efra. Index 1.41 cm2/m2 LVOT Mean Grad 2.4 mmHg LVOT VTI 0.234 m LVOT Diam s 1.90 cm AoV Vmax 1.10 m/s Velocity Ratio 0.96 AoV Mean Efra. 0.79 m/s AoV Peak Grad 4.8 mmHg LVOT SV 69.32 mL AoV Mean Grad 2.8 mmHg AoV VTI 0.232 m AoV Area VTI 2.98 cm2 AoV Area/ BSA (VTI) 1.56 cm/m2 Mitral Valve MV DT 343 (160-240 msec) MR Vmax 5.41 m/s MV PHT 100 msec MR VTI 2.104 m MV Area PHT 2.21 cm2 MR Peak Grad 117.1 mmHg MV VTI 0.236 m MR Mean Grad 87.3 mmHg MV VTI Annulus 0.234 m MR PISA Radius 0.46 cm MV Area VTI 2.93 (4.0-6.0 cm2) MR EROA 0.09 cm2 MR Aliasing Velocity 0.35 m/s MR PISA 1.32 cm2 Pulmonary Valve PV Vmax 0.77 (0.5-1.5 m/s) RVOT Peak Gr. 1.94 mmHg PV Peak Grad 2.3 mmHg RVOT Mean Gr. 0.95 mmHg PV Mean Grad 1.3 mmHg RVOT VTI 0.154 m PV VTI 0.178 m RVOT Vmax 0.70 m/s Tricuspid Valve TR Peak Grad 21.7 mmHg TR Vmax 2.33 m/s RA Pressure 3.00 mmHg RVSP (TR) 24.8 mmHg
== END 2021-06-15 02:33 ==
PROVIDERS: PCP Student in an Organized Health Care Education/Training Program; Visit Provider Student in an Organized Health Care Education/Training Program
DX: R06.02 Shortness of breath (principal); R60.0 Localized edema; I77.810 Thoracic aortic ectasia
CPT/HCPCS: 93306

== ENCOUNTER 2021-08-25 01:33 | Outpatient (CLI) | payer MEDICARE, OTHER, SELFPAY ==
--- NOTE | 2021-08-25 07:45 | DI.MAMMO_ITS ---
Exam(s) MAMMO SCREENING EXAM: MAMMO SCREENING CLINICAL HISTORY: screening,z12.39 TECHNIQUE: Bilateral full field digital CC and MLO mammographic images were obtained with 3D tomosyn thesis and utilizing computer aided detection (CAD). COMPARISON: Available for comparison. FINDINGS: Masses/Architectural Distortion: None seen. There is an old right breast biopsy. Microcalcifications: No suspicious pleomorphic-type are seen. Skin Thickening/Nipple Retraction: None. IMPRESSION: 1. No significant interval change with no specific features of malignancy noted. 2. Unless there is more urgent need, screening mammography is recommended, as per [employer] guidelines. BI-RADS Category 1 - Negative Breast Density - Category B - Scattered areas of fibroglandular density Breast density category C or D implies that the patient has dense breast tissue. Dense breast tissue is very common and is not abnormal but dense breast tissue can make it harder to find cancer on a ma mmogram. Also, dense breast tissue may increase their breast cancer risk. This information about the result of the mammogram report was provided to the patient to raise their awareness. Use this report when you speak with the patient about their risks for breast cancer, which includes their family hist ory. At that time, you may recommend for more screening tests (Ultrasound or MRI) as they might be us eful based on their risk. A negative radiographic report should not delay biopsy if a dominant or clinically suspicious mass is present. Up to ten percent of cancers are not identified on mammography. A negative report may reinforce clinical impression. Adenosis and dense breasts may obscure an underlying neoplasm. False positive reports average 6 to 10%. Patient will receive a letter notifying them of these results.
== END 2021-08-25 01:53 ==
PROVIDERS: PCP Student in an Organized Health Care Education/Training Program; Visit Provider Student in an Organized Health Care Education/Training Program
DX: Z12.31 Encounter for screening mammogram for malignant neoplasm of breast (principal)
CPT/HCPCS: 77063; 77067

== ENCOUNTER → 2022-06-29 00:20 | Outpatient (CLI) | payer MEDICARE, OTHER, SELFPAY ==
--- NOTE | 2022-06-29 08:19 | DI.RAD_ITS ---
Exam(s) XR KNEE LT 4V AP,LAT,JINNY,PAT EXAM: XR KNEE LT 4V AP,LAT,JINNY,PAT CLINICAL HISTORY: LT KNEE PAIN,CONTINUED INSTABILITY POSTOP,M25.562,PATELLAR DISORDER. TECHNIQUE: 2D digital imaging was performed. COMPARISON: No exams were available for comparison FINDINGS: Four views: There is a left knee prosthesis. This appears to be in satisfactory position and alignment. No frac tures or loosening evident. No radiographic evidence of osteomyelitis. IMPRESSION: DATA REPOSITORY: RADIATION DOSE DELIVERED:
== END ==
PROVIDERS: PCP Student in an Organized Health Care Education/Training Program; Visit Provider Student in an Organized Health Care Education/Training Program
DX: M22.92 Unspecified disorder of patella, left knee (principal); M23.52 Chronic instability of knee, left knee; M25.562 Pain in left knee; Z96.652 Presence of left artificial knee joint
CPT/HCPCS: 36415; 80053; 80061; 73564; 83036; 84443

== ENCOUNTER 2022-06-29 01:52 | Outpatient (CLI) | payer MEDICARE, OTHER, SELFPAY ==
[2022-06-29 09:07] LABS: ALT 39 U/L (14-59); AST 26 U/L (15-37); Albumin 3.8 g/dL (3.4-5.0); Alkaline Phosphatase 87 U/L (46-116); Anion Gap 8.9 mmol/L (3-11); BUN 17 mg/dL (7-18); Bilirubin, Total 0.3 mg/dL (0.2-1.0); CO2 26.1 mmol/L (21.0-32.0); CREATININE 1.2 mg/dL (0.55-1.02); Calcium 9.1 mg/dL (8.5-10.1); Calculated LDL 70 mg/dL (<100); Chloride 106 mmol/L (98-107); Cholesterol 187 mg/dL (<200); Estimated GFR 44.29 (mL/min/1.73m2); Glucose 118 mg/dL (74-106); HDL Cholesterol 85 mg/dL (40-60); Potassium 4.2 mmol/L (3.5-5.1); Sodium 141 mmol/L (136-145); TSH (W/Ref FT4) 1.56 uIU/mL (0.36-3.74); Total Protein 7.4 g/dL (6.4-8.2); Triglyceride 161 mg/dL (<150)
[2022-06-29 09:22] LABS: Hemoglobin A1C 6.2 % (<5.7)
== END 2022-06-29 01:53 | disposition home or self-care (01) ==
LOC: LBO 01:52
PROVIDERS: PCP Student in an Organized Health Care Education/Training Program; Visit Provider Student in an Organized Health Care Education/Training Program
DX: N28.9 Disorder of kidney and ureter, unspecified (principal); R73.01 Impaired fasting glucose; R79.89 Other specified abnormal findings of blood chemistry; F41.9 Anxiety disorder, unspecified
CPT/HCPCS: 36415; 80053; 80061; 83036; 84443

== ENCOUNTER 2022-09-29 02:01 | Outpatient (CLI) | payer MEDICARE, OTHER, SELFPAY ==
--- NOTE | 2022-10-03 16:52 | PFT_ITS ---
Date of service: 09/30/22 Time of Service: 20:03 Pulmonary Function Test Result Indications: Nocturnal headaches and snoring Note: Overnight Oximetry Amount of time analyzed: 11 hours 4 minutes Number of minutes under 88%: 4.7 [place]AWNEE:2.6 Appearance of oxygen saturation pattern:Gradual decrease and increase that may be inbound call center representative of pulmonary or cardiac disease Recommendation: No need for nocturnal oxygen based on this nocturnal oximetry. [place] and SpO2 pattern not indicative of obstructive sleep apnea. Rachel Cleveland MD Pulmonary & Critical Care Medicine Clinical Correlation therefore is recommended.
== END 2022-09-29 02:02 | disposition home or self-care (01) ==
LOC: RT 02:01
PROVIDERS: PCP Student in an Organized Health Care Education/Training Program; Visit Provider Student in an Organized Health Care Education/Training Program
DX: R51.9 Headache, unspecified (principal); R06.83 Snoring
CPT/HCPCS: 94762

== ENCOUNTER → 2022-10-20 00:26 | Outpatient (CLI) | payer MEDICARE, OTHER, SELFPAY ==
--- NOTE | 2022-10-20 07:59 | DI.MAMMO_ITS ---
Exam(s) MAMMO SCREENING EXAM: MAMMO SCREENING CLINICAL HISTORY: screening,z12.39 TECHNIQUE: Mammograms were interpreted according to the usual protocol including computer analysis w [employer] CAD system, tomosynthesis and C-view imaging. COMPARISON: 2016 through 2020 FINDINGS: The breasts are composed of scattered fibroglandular densities, Breast Density category B. No suspicious masses or suspicious microcalcifications are seen. Area of mild scarring is again note d in the medial right breast No skin thickening or abnormal axillary lymph nodes are seen. There has been no significant change from prior exams. IMPRESSION: BI-RADS Cat 2 - Benign Findings Yearly screening mammography is recommended. Breast Density - Category B, scattered fibroglandular densities. A negative radiographic report should not delay biopsy if a dominant or clinically suspicious mass is present. Up to ten percent of cancers are not identified on mammography. A negative report may reinforce clinical impression. Adenosis and dense breasts may obscure an underlying neoplasm. False positive reports average 6 to 10%. Patient will receive a letter notifying them of these results.
== END ==
PROVIDERS: PCP Student in an Organized Health Care Education/Training Program; Visit Provider Student in an Organized Health Care Education/Training Program
DX: Z12.31 Encounter for screening mammogram for malignant neoplasm of breast (principal)
CPT/HCPCS: 77063; 77067

== ENCOUNTER 2023-03-27 02:17 | Outpatient (CLI) | payer MEDICARE, OTHER, SELFPAY ==
[2023-03-27 09:03] LABS: HCT 39.7 % (36.0-46.0); MCH 32.6 pg (27.0-33.0); MCHC 32.7 % (32.0-36.0); MCV 100 fL (80-95); MPV 9.8 fL (8.0-11.0); Platelet Count 210 10^3/uL (130-400); RBC 3.99 10^6/uL (3.93-5.22); RDW 13.2 % (11.7-14.6); RDW-SD 48.8 fL
[2023-03-27 10:02] LABS: Hemoglobin A1C 5.8 % (<5.7)
[2023-03-27 10:20] LABS: Anion Gap 7.1 mmol/L (3-11); BUN 18 mg/dL (7-18); CO2 27.9 mmol/L (21.0-32.0); CREATININE 1.3 mg/dL (0.55-1.02); Calcium 9.2 mg/dL (8.5-10.1); Calculated LDL 147 mg/dL (<100); Chloride 104 mmol/L (98-107); Cholesterol 278 mg/dL (<200); Estimated GFR 43.69 (mL/min/1.73m2); Glucose 105 mg/dL (74-106); HDL Cholesterol 84 mg/dL (40-60); Magnesium 1.9 mg/dL (1.8-2.4); Potassium 4.6 mmol/L (3.5-5.1); Sodium 139 mmol/L (136-145); Triglyceride 238 mg/dL (<150)
== END 2023-03-27 02:18 | disposition home or self-care (01) ==
PROVIDERS: PCP Student in an Organized Health Care Education/Training Program; Referring Provider Student in an Organized Health Care Education/Training Program; Visit Provider Student in an Organized Health Care Education/Training Program
DX: N28.9 Disorder of kidney and ureter, unspecified (principal); R73.09 Other abnormal glucose; E78.89 Other lipoprotein metabolism disorders; R51.9 Headache, unspecified; F41.8 Other specified anxiety disorders
CPT/HCPCS: 36415; 80048; 80061; 82306; 85027; 83036; 83735

== ENCOUNTER 2023-04-03 11:21 | Outpatient (CLI) | payer MEDICARE, OTHER, SELFPAY ==
--- NOTE | 2023-04-03 11:15 | RT.EKG_ITS ---
APPROVED REPORT Exam: Resting ECG Reason for Exam: Stimulant protocol Patient Location: O HR:76 bpm ECG Measurements Heart Rate 76 AXIS AL 170 P 40 QRSd 89 QRS 8 QT 418 T 39 QTc 471 Conclusion Sinus rhythm...normal P axis, V-rate 50- 99 Normal Electrocardiogram
== END 2023-04-03 11:22 | disposition home or self-care (01) ==
LOC: DI.KIM 11:23
PROVIDERS: PCP Student in an Organized Health Care Education/Training Program; Visit Provider Student in an Organized Health Care Education/Training Program
DX: Z51.81 Encounter for therapeutic drug level monitoring (principal)
CPT/HCPCS: 93010

== ENCOUNTER → 2024-01-03 02:52 | Outpatient (CLI) | payer MEDICARE, OTHER, SELFPAY ==
--- NOTE | 2024-01-03 08:20 | DI.MAMMO_ITS ---
Exam(s) MAMMO SCREENING EXAM: MAMMO SCREENING CLINICAL HISTORY: screening,z12.39 TECHNIQUE: Mammograms were interpreted according to the usual protocol including computer analysis w [employer] CAD system, tomosynthesis and C-view imaging. COMPARISON: 2016 through 2021 FINDINGS: The breasts are composed of scattered fibroglandular densities, Breast Density category B. No suspicious masses or suspicious microcalcifications are seen. Stable scarring right breast. No skin thickening or abnormal axillary lymph nodes are seen. There has been no significant change from prior exams. IMPRESSION: BI-RADS Category 2 - Negative Mammogram with benign findings. Yearly screening mammography is recom mended. Breast Density - Category B, scattered fibroglandular densities. A negative radiographic report should not delay biopsy if a dominant or clinically suspicious mass is present. Up to ten percent of cancers are not identified on mammography. A negative report may reinforce clinical impression. Adenosis and dense breasts may obscure an underlying neoplasm. False positive reports average 6 to 10%. Patient will receive a letter notifying them of these results.
== END ==
PROVIDERS: PCP Student in an Organized Health Care Education/Training Program; Visit Provider Student in an Organized Health Care Education/Training Program
DX: Z12.31 Encounter for screening mammogram for malignant neoplasm of breast (principal)
CPT/HCPCS: 77063; 77067

== ENCOUNTER 2024-02-26 04:36 | Outpatient (CLI) | payer MEDICARE, OTHER, SELFPAY ==
[2024-02-26 10:33] LABS: ALT 39 U/L (14-59); AST 25 U/L (15-37); Albumin 3.8 g/dL (3.4-5.0); Alkaline Phosphatase 89 U/L (46-116); Anion Gap 11.5 mmol/L (3-11); BUN 22 mg/dL (7-18); Bilirubin, Total 0.3 mg/dL (0.2-1.0); CO2 23.5 mmol/L (21.0-32.0); CREATININE 1.3 mg/dL (0.55-1.02); Calcium 8.9 mg/dL (8.5-10.1); Calculated LDL 117 mg/dL (<100); Chloride 107 mmol/L (98-107); Cholesterol 243 mg/dL (<200); Estimated GFR 43.42 (mL/min/1.73m2); Folate 7.7 ng/mL (8.6-20.0); Glucose 105 mg/dL (74-106); HDL Cholesterol 83 mg/dL (40-60); Potassium 4.3 mmol/L (3.5-5.1); Sodium 142 mmol/L (136-145); Total Protein 7.3 g/dL (6.4-8.2); Triglyceride 216 mg/dL (<150); Vitamin B12 225 pg/mL (193-986)
== END 2024-02-26 04:37 | disposition home or self-care (01) ==
PROVIDERS: PCP Student in an Organized Health Care Education/Training Program; Visit Provider Student in an Organized Health Care Education/Training Program
DX: R71.8 Other abnormality of red blood cells (principal); N18.30 Chronic kidney disease, stage 3 unspecified; E78.5 Hyperlipidemia, unspecified
CPT/HCPCS: 36415; 80053; 80061; 82607; 82746

== ENCOUNTER 2024-06-23 03:15 | Outpatient (CLI) | payer MEDICARE, OTHER, SELFPAY ==
[2024-06-23 09:10] LABS: Anion Gap 8.3 mmol/L (3-11); BUN 17 mg/dL (7-18); CO2 26.7 mmol/L (21.0-32.0); CREATININE 1.3 mg/dL (0.55-1.02); Calcium 8.9 mg/dL (8.5-10.1); Chloride 105 mmol/L (98-107); Estimated GFR 43.42 (mL/min/1.73m2); Glucose 118 mg/dL (74-106); Potassium 3.9 mmol/L (3.5-5.1); Sodium 140 mmol/L (136-145); Vitamin D 25 Total 26.6 ng/mL (30-100)
[2024-06-24 17:57] LABS: Hemoglobin A1C 5.9 % (<5.7)
== END 2024-06-23 03:16 | disposition home or self-care (01) ==
LOC: LBO 03:16
PROVIDERS: PCP Student in an Organized Health Care Education/Training Program; Visit Provider Student in an Organized Health Care Education/Training Program
DX: R73.09 Other abnormal glucose (principal); K90.9 Intestinal malabsorption, unspecified; N18.9 Chronic kidney disease, unspecified
CPT/HCPCS: 36415; 80048; 82306; 83036

== ENCOUNTER → 2025-03-23 13:22 | Outpatient (BNVA) | payer MEDICARE, OTHER, SELFPAY | PROVIDERS: PCP Family Medicine; Referring Provider Family Medicine; Visit Provider Surgery | DX: N82.3 Fistula of vagina to large intestine (principal) | CPT/HCPCS: 99203 ==

== ENCOUNTER 2025-03-30 10:24 | Day surgery (SDC) | payer MEDICARE, OTHER, SELFPAY ==
--- NOTE | 2025-03-29 08:01 | PDOC.DSDIS_ITS ---
Date of service: 03/30/25 Discharge Plan Disposition Patient Disposition: Home Condition: Good Discharge Details Reason For Visit: diagnostic colonoscopy Attending Provider: Ernie Salmeron Primary Care Provider: Lucian Collazo Home Meds and New Rx's Prescriptions: Continued lysine 500 mg tablet 500 mg PO DAILY cholecalciferol (vitamin D3) 25 mcg (1,000 unit) capsule 25 mcg PO DAILY diazepam 5 mg tablet 5 mg PO DAILY MDD 5mg PRN (Reason: anxiety or panic episodes) Qty: 30 2RF Rx Instructions: Continue for panic episides zolpidem [Ambien] 5 mg tablet 5 mg PO QHS PRN (Reason: extended insomnia) Qty: 30 2RF Rx Instructions: Tapering to PRN use acyclovir 800 mg tablet 800 mg PO TID PRN (Reason: viral flare) Qty: 6 81RF furosemide 20 mg tablet 20 mg PO DAILY Qty: 90 3RF donepezil 5 mg tablet 5 mg PO DAILY Qty: 90 3RF Rx Instructions: Reviewed, EKG ordered. Neuro consult appreciated. shnqaimbuw-tlcqapd-ebfwyddb 50-325-40 mg capsule 1 cap PO Q6H PRN (Reason: tension headaches) Qty: 20 2RF Rx Instructions: Continue for tension headaches, with close monitoring ONLY Rx for BLANK betamethasone valerate 0.1 % lotion 1 applic topical DAILY PRN (Reason: itching) Qty: 60 2RF ezetimibe-simvastatin 10-20 mg tablet 1 tab PO QHS Qty: 90 3RF Rx Instructions: Change due to Insurance coverage; Inc dose per d/w cc citalopram 40 mg tablet 40 mg PO DAILY Qty: 90 3RF Discharge Instructions Additional Instructions: Dari, it was good to see you today. Again, I apologize for the discomfort of the bowel prep. I agree with Dr. Resendiz assessment of your fistula. And I suspect that this is arising from diverticular disease. I am able to get the camera of about 25 cm beyond the anus, and I cannot navigate past that because of angulation of the colon. This typically occurs when patients have inflammation from diverticulitis, resulting in scar tissue that eventually connects the inside lining of the colon to the inside lining of the vagina. I do think that this will require surgery to fix. Given the complexity of the colonoscopy, and the extensive diverticulosis that I am able to see with the scope, I do think referral to [facility] [place] to meet with her colon and rectal specia list is probably in your best interest. I will have my office start working on this today, and hopefully they can accommodate you in a timely fashion. 1. If tolerated, consume a soft, low fiber diet for 1-2 days. 2[address] Do not drive, drink alcohol, operate machinery, make critical decisions, or do activities that require coordination or balance for 24 hours. 3. Because air was put into your colon during the procedure, expelling air from your rectum (passing gas or farting) is normal. 4. You may not have a bowel movement for 1-3 days because of the colonoscopy prep. This is normal. 5. Go directly to the emergency room if you notice any of the following: Develop chills (warm to touch), or if you have a thermometer and your temperature is above 101 Difficulty breathing or difficultly swallowing Persistent vomiting Severe abdominal pain, other than gas cramps Severe chest pain Black, tarry stools Any bleeding ? exceeding one tablespoon 6. Call your physician if the site where your intravenous was started becomes red, swollen, painful, and warm to touch. 7. Your physician has reviewed your pre-procedure medications. Please continue to take those medications as previously ordered. You will be given specific information/education regarding any changes to your medications before leaving. Stand Alone Forms: Anesthesia Discharge Inst., Colonoscopy Post Instructions, Xavier Strickland (DSU) Activity:: Activity as Tolerated Diet:: As Tolerated Discharge Orders Discharge Orders: Discharge Order (Routine); Ordered 03/29/25 Ordered By: Ernie Salmeron DS: Diagnosis Discharge Diagnosis (1) Rectovaginal fistula: Status: Acute Asessment and Plan: Findings most consistent with a [place] vaginal fistula, likely secondary to diverticulosis. Will refer to colorectal surgery at [facility] [place] for definitive treatment
--- NOTE | 2025-03-29 08:02 | W.COLOREPORT ---
Date of service: 03/30/25 Time of Service: 13:11 Colonoscopy Report Date of procedure: 03/30/25 Pre-op diagnosis general: rectovaginal fistula Post-op diagnosis procedure note: other (Colovaginal fistula) Procedure: Colonoscopy Surgeon: Ernie Salmeron Anesthesia Type: General:No Airway Estimated blood loss (mL): 0 Pathology: none sent Complications: None Disposition: same day Indications: Dari is a 74 year old woman with symptoms of a rectovaginal or colovaginal fistula. Prep: Miralax/Dulcolax Procedure Start Time: 12:46 Procedure End Time: 13:01 Findings: Sharp angulation of the sigmoid colon around 25 cm beyond the anus with extensive sigmoid diverticulosis. Drainage through the vagina consistent with colovaginal fistula Procedure Description: After the induction of anesthesia, and with Dari in left lateral decubitus position, I began by performing an external anorectal exam.? There is no significant external hemorrhoid disease next, I performed a digital rectal exam. This felt normal. Next, I advanced a colonoscope into the rectal vault.? I performed retroflexion.? There are grade 1 internal hemorrhoids. There are some retained semisolid and liquid stool in the rectal vault. I attempted to irrigate this clean. There is drainage of irrigant through the vagina, and visualization of the rectum is a little bit challenging. I am able to irrigate much of this clear. I do not see any discrete rectovaginal fistula.? Using a combination of irrigation and insufflation, I gently advanced the colonoscope up into the sigmoid colon. Around 15 cm beyond the anus there is evidence of sigmoid diverticulosis. Great care was taken to carefully navigate this as best I could. There is extensive narrow mouth diverticulosis. Around 25 cm beyond the anal verge are sharp angulation of the sigmoid colon. Despite several attempts, not able to safely traverse this.? Based on the extent of the diverticular disease, and the confirmational change of the sigmoid in this location, this all seems most consistent with a colovaginal fistula arising from the sigmoid colon likely secondary to diverticulosis. At that point, with inability to traverse the segment, I emptied the sigmoid and rectum, withdrew the scope, and allowed Dari to awaken from anesthesia and transferred to the recovery unit. [place] Bowel Prep [place] Bowel Prep Left Colon: 2 Total Score: 2
--- NOTE | 2025-03-30 06:47 | ANES.PREOP_ITS ---
General Info Date of Service Date Performed: 03/30/25 Height: 5 ft 5 in Weight: 77 kg Body Mass Index (BMI): 28.2 Surgical Procedure: Operation Date: 03/30/25 12:05 Proposed Procedure Side Surgeon keri Salmeron MD Meds Allergies and Home Medications Allergies Allergy/AdvReac Type Severity Reaction Status Date / Time No Known Allergies Allergy Verified 03/30/25 10:49 Home Medication ?Medication ?Instructions ?Recorded cholecalciferol (vitamin D3) 25 25 mcg PO DAILY 05/19/21 mcg (1,000 unit) capsule lysine 500 mg tablet 500 mg PO DAILY 05/19/21 acyclovir 800 mg tablet 800 mg PO TID PRN viral flare #6 11/04/24 tabs furosemide 20 mg tablet 20 mg PO DAILY #90 tabs 12/05/24 donepezil 5 mg tablet 5 mg PO DAILY #90 tabs 12/09/24 pjmseruezc-xdzkwlj-mkqfouoi 50 1 cap PO Q6H PRN tension headaches 12/25/24 mg-325 mg-40 mg capsule #20 caps betamethasone valerate 0.1 % lotion 1 applic topical DAILY PRN itching 03/05/25 #60 mL diazepam 5 mg tablet 5 mg PO DAILY PRN anxiety or panic 03/05/25 episodes #30 tabs zolpidem 5 mg tablet (Ambien) 5 mg PO QHS PRN extended insomnia 03/05/25 #30 tabs citalopram 40 mg tablet 40 mg PO DAILY #90 tabs 03/09/25 ezetimibe 10 mg-simvastatin 20 mg 1 tab PO QHS #90 tabs 03/09/25 tablet Current Visit Medications: Current Medications Generic Name Dose Route Start Last Admin Trade Name Freq PRN Reason Stop Dose Admin Ringer's Solution 1,000 mls @ 80 mls/hr 03/30/25 06:00 IV 04/26/25 23:[address] IV Miscellaneous Supplies 1 each 03/30/25 06:00 Iv Access IV 04/26/25 23:[address] Sodium Chloride 0 ml 03/30/25 06:00 Normal Saline Flush 10 Ml Syr IV 04/26/25 23:59 PRN PRN Sodium Chloride 0 ml 03/30/25 06:00 Normal Saline 10 Ml Vial IJ 04/26/25 23:59 DIRECTED PRN Sterile Water 0 ml 05/12/25 06:00 Water,Injection,Sterile 10 Ml Vial IJ 04/26/25 23:59 DIRECTED PRN PFSH Active Problems Active Problems: Problem Status Onset Code Rectovaginal fistula Acute N82.3 Dermatosis Acute L98.9 Status post hysterectomy Acute Z90.710 Eczema of both hands Acute L30.9 Elevated MCV Acute R71.8 Lesion of lower eyelid Acute H02.9 CKD (chronic kidney disease) stage 3, GFR 30-59 ml/min Acute N18.30 Elevated hemoglobin A1c Acute R73.09 Hx of headache Chronic Z87.898 At risk for polypharmacy Acute Z91.89 History of difficulty sleeping Acute Z72.821 Anxiety Chronic F41.9 History of CVA with residual deficit Chronic I69.30 Medical History Medical History PFO (patent foramen ovale) per 2010 Echo, caused CVA per pt report ... was there device closure discussion? Hyperlipidemia Carotid artery plaque atherosclerotic plaque near LFT subclav/common carotid artery (4.4mm), per 2009 Echo Aorta disorder Intimal thickening per Echo (2009) Snoring Family history of breast cancer Mo, Aunts on both sides ... Fam Hx mastectomy and long survival, but several deaths 2' recurrence/metastases.. unclear pelvic cancer Hx. Family history of hyperlipidemia Osteoarthritis of foot, right s/p surgery, winter Exostosis of bone of foot Healed well post surgery, winter. Dr. Willard, Rt foot #2 fused. On scooter x 10-12 weeks. GERD (gastroesophageal reflux disease) Surgical History Surgical History Hx of carpal tunnel repair Hx of foot surgery Right. Exostosis (?). Hx of tonsillectomy History of hysterectomy Removed uterus, ovary .. left one ovary per pt rpt History of appendectomy Hx of shoulder surgery History of total left knee replacement (TKR) Tobacco Smoking/Tobacco Use Status: Former Tobacco Use Passive smoking exposure: No Alcohol Alcohol Intake: current Alcohol intake frequency: a few times a month Alcohol type: wine Substance Use Substance use: Never Substance use type: does not use Prental History History 2 Para 2 Hx # Term Pregnancies 2 Multiple births Hx # Pregnancies Ectopic pregnancies AB induced Hx Number of Living Children 2 AB spontaneous Past Pregnancies Del. Date GA/Weeks # Preg Succ Route Wgt Sex Labor Lgth Anesth esia Location Prov Complic 11/19/70 40 No Yes vaginal Female winter [facility] 07/06/72 40 No Yes vaginal 3373.593 g Male [facility]he[facility] Vital Signs and Lab Results Vital Signs Most Recent Vital Signs in EMR: Temp Pulse Resp BP Pulse Ox 36.3 C L 60 16 116/70 97 03/30/25 10:54 03/30/25 10:54 03/30/25 10:54 03/30/25 10:54 03/30/25 10:54 Lab Results Blood Type / Crossmatch: No Data to Display Complete Blood Count: No Data to Display Complete Metabolic Panel: No Data to Display Liver Function Panel: No Data to Display Coagulation Panel: No Data to Display Cardiac Panel: No Data to Display Arterial Blood Gas: No Data to Display Venous Blood Gas: No Data to Display Pancreas Panel: No Data to Display Thyroid Panel: No Data to Display Infectious Disease: No Data to Display Blood Cultures: No Data to Display Toxicology Panel: No Data to Display Anesthesia Assessment and Plan Anesthesia History Personal History: No History of Anesthesia Complications Family History: No Family History of Anesthesia Complications Exercise Tolerance Exercise Tolerance: Metabolic Equivalents>4 Cardiac & Pulmonary Exam Cardiac Exam: Normal S1/S2 Heart Sounds Pulmonary Exam: Clear Bilateral Breath Sounds Implantable Cardiac Device Does patient have a Pacemaker or an ICD?: No Airway Exam Known Difficult Airway: No Mallampati Class: 2 Mouth Opening: Normal (> 3cm) Thyromental Distance: Greater than 3 cm Neck Range of Motion: Full ROM Neck Circumference: Normal Teeth Condition: Removable Dentures/Plates Upper and Removable Dentures/Plates Lower ASA Classification ASA Score: ASA 3 Emergency Case?: No NPO Status NPO Status: NPO Clears >2 hours, Solids >8 hours Anesthesia Plan Resuscitation Status: Full Code Anesthesia Technique: General Anesthesia Airway Planned: Natural Airway Monitors Used: Standard Monitors Preoperative Comments:: 74 yo female for colo Sig PMHx: PFO, NISHA, CVA, GERD, CKDIII, anxiety, former smoker, occ EtOH. ECHO: LVEF 58%, mild MR Previous Anes: - foot x 2, prop, natural airway/OPA, no issues.
[2025-03-30 10:54] VITALS: BP 116/70; PULSE 60; RESP 16; TEMP 36.3; O2SAT 97
[2025-03-30] MEDS: Lactated Ringers 1,000 ML 80 ML IV (11:16)
[2025-03-30 12:16] VITALS: BMI 28.2
[2025-03-30 13:04] VITALS: BP 97/52; PULSE 78; RESP 18; TEMP 36.4; O2SAT 93
--- NOTE | 2025-03-30 13:18 | W.ANESPOSTOP ---
Postoperative Evaluation Date, Time and Location Date Performed: 03/30/25 Time Performed: 13:18 Patient Location: Day Surgery Unit Vital Signs Most Recent Imported Vital Signs: Most Recent Vital Signs Temp Pulse Resp BP Pulse Ox 36.4 C L 78 18 97/52 L 93 03/30/25 13:04 03/30/25 13:04 03/30/25 13:04 03/30/25 13:04 03/30/25 13:04 Pain Score Most Recent Pain Score: Most Recent Pain Score Pain Level 0 03/30/25 13:04 Assessment Mental Status: Awake (Alert & Oriented to Patient Baseline) Airway and Respiratory Function: Patent airway with normal (patient baseline) respiratory exam Cardiovascular Function: Hemodynamically Stable Hydration Status: Adequately Hydrated Nausea & Vomiting: No Nausea or Vomiting Pain: Pt. Denies Any Pain Peripheral Nerve Block: Patient did not receive a nerve block
[2025-03-30 13:32] VITALS: BP 102/89; PULSE 60; RESP 18; TEMP 36.3; O2SAT 98
== END 2025-03-30 13:45 | disposition home or self-care (01) ==
LOC: SUR 10:24
PROVIDERS: PCP Family Medicine; Visit Provider Surgery
PROC: 0DJD8ZZ Inspection of Lower Intestinal Tract, Via Natural or Artificial Opening Endoscopic (ICD-10-PCS; CPT 45378; principal; 2025-03-30 12:00)
DX: N82.3 Fistula of vagina to large intestine (principal); K57.30 Diverticulosis of large intestine without perforation or abscess without bleeding
CPT/HCPCS: 45378; J2704

== ENCOUNTER 2025-05-21 02:52 | Outpatient (CLI) | payer MEDICARE, OTHER, SELFPAY ==
[2025-05-21 08:25] LABS: HGB 12.2 g/dL (11.2-15.7)
[2025-05-21 08:52] LABS: Hemoglobin A1C 5.6 % (<5.7)
[2025-05-21 11:05] LABS: Folate 10.3 ng/mL (8.6-20.0)
[2025-05-21 11:14] LABS: ALT 40 U/L (14-59); AST 29 U/L (15-37); Albumin 3.6 g/dL (3.4-5.0); Alkaline Phosphatase 84 U/L (46-116); Anion Gap 7.7 mmol/L (3-11); BUN 21 mg/dL (7-18); Bilirubin, Total 0.3 mg/dL (0.2-1.0); CO2 27.3 mmol/L (21.0-32.0); Calcium 8.8 mg/dL (8.5-10.1); Calculated LDL 108 mg/dL (<100); Chloride 101 mmol/L (98-107); Cholesterol 235 mg/dL (<200); Estimated GFR 52.73 (mL/min/1.73m2); Glucose 109 mg/dL (74-106); HDL Cholesterol 86 mg/dL (>or=50); Potassium 4.3 mmol/L (3.5-5.1); Sodium 136 mmol/L (136-145); Total Protein 7.5 g/dL (6.4-8.2); Triglyceride 207 mg/dL (<150); Vitamin B12 258 pg/mL (193-986); Vitamin D 25 Total 38 ng/mL (30-100)
== END 2025-05-21 02:53 | disposition home or self-care (01) ==
LOC: LBO 02:52
PROVIDERS: Student in an Organized Health Care Education/Training Program; PCP Family Medicine; Referring Provider Family Medicine; Visit Provider Family Medicine
DX: K90.9 Intestinal malabsorption, unspecified (principal); N18.9 Chronic kidney disease, unspecified; Z72.821 Inadequate sleep hygiene; R71.8 Other abnormality of red blood cells; Z13.220 Encounter for screening for lipoid disorders; R73.09 Other abnormal glucose
CPT/HCPCS: 36415; 80053; 80061; 82306; 82607; 82746; 83036; 85018

== ENCOUNTER 2025-07-08 02:05 | Outpatient (CLI) | payer MEDICARE, OTHER, SELFPAY ==
--- NOTE | 2025-07-08 08:27 | DI.MAMMO_ITS ---
Exam(s) MAMMO SCREENING EXAM: MAMMO SCREENING CLINICAL HISTORY: screening,z12.39 TECHNIQUE: Mammograms were interpreted according to the usual protocol including computer analysis with CAD system, tomosynthesis and C-view imaging. COMPARISON: 2016 through 2023 FINDINGS: The breasts are composed of scattered fibroglandular densities, Breast Density category B. No suspicious masses or suspicious microcalcifications are seen. Mild scarring is again noted in the subareolar region of the right breast. No skin thickening or abnormal axillary lymph nodes are seen. There has been no significant change from prior exams. IMPRESSION: BI-RADS Category 1, Negative mammogram Yearly screening mammography is recommended. Breast Density - Category B - There are scattered areas of fibroglandular density. Breast density Category C or D implies that the patient has dense breast tissue. Dense breast tissue can make it harder to find cancer on a mammogram. Dense breast tissue is also associated with an increased risk of breast cancer. This information about the result of the mammogram report was provided to the patient to raise their awareness. Use this report when you speak with the patient about their risks for breast cancer, which includes their family history. At that time, you may recommend additional screening tests (Ultrasound or MRI) as these tests may add significant information. A negative radiographic report should not delay biopsy if a dominant or clinically suspicious mass is present. Up to ten percent of cancers are not identified on mammography. A negative report may reinforce clinical impression. Adenosis and dense breasts may obscure an underlying neoplasm. False positive reports average 6 to 10%. Patient will receive a letter notifying them of these results.
== END 2025-07-08 02:25 ==
PROVIDERS: PCP Family Medicine; Visit Provider Family Medicine
DX: Z12.31 Encounter for screening mammogram for malignant neoplasm of breast (principal); R92.323 Mammographic fibroglandular density, bilateral breasts
CPT/HCPCS: 77063; 77067